=== PATIENT | male | born 1950 | race Caucasian/White ===

== ENCOUNTER 2019-09-28 14:23 | Observation (INO) | payer OTHER, BC ==
[2019-09-28] MEDS ORDERED: NA CHLORIDE 0.9% 1,000 ML ONE (15:15)
[2019-09-28 15:18] LABS: Absolute Lymphocytes (CBC) 1.5 K/uL (0.7-4.9); Basophils % 0.4 % (0-1.3); Hematocrit 41.4 % (39.6-49.0); Lymphocytes % 20.3 % (15.3-44.8); MPV 9.5 fL (7.6-11.3); RBC Red Blood Cell Count 4.79 M/uL (4.33-5.43)
--- NOTE | 2019-09-28 15:21 | EDPHYS ---
Physician Documentation [facility] Name: Santa Tejeda Age: 68 yrs Sex: Male : 1950 Arrival Date: 09/28/2019 Time: 14:25 Bed 30 Private MD: ED Physician Vladimir Ibarra HPI: 09/28 15:12 This 68 yrs old Male presents to ER via Ambulatory with complaints of Leg bob Swelling. 15:12 no trauma , no stasis, no hypercoagulable state. Onset: The symptoms/episode bob began/occurred 3 day(s) ago. Severity of symptoms: At their worst the symptoms were mild moderate in the emergency department the symptoms are unchanged. The patient has not experienced similar symptoms in the past. Historical: - Allergies: 14:42 No Known Allergies; iw - Home Meds: 14:42 lisinopril 10 mg Oral tab 1 tab once daily [Active]; metformin 500 mg Oral Tb24 2 times iw per day [Active]; - PMHx: 14:42 Hypertension; Diabetes - NIDDM; iw - PSHx: 14:42 shoulder; hip; iw - Immunization history:: Adult Immunizations not up to date. - Social history:: Smoking status: Patient/guardian denies using tobacco. - Ebola Screening: : Patient negative for fever greater than or equal to 101.5 degrees Fahrenheit, and additional compatible Ebola Virus Disease symptoms Patient denies exposure to infectious person Patient denies travel to an Ebola-affected area in the 21 days before illness onset No symptoms or risks identified at this time. - Family history:: not pertinent. ROS: 15:12 Constitutional: Negative for fever, chills, and weight loss, Eyes: Negative for injury, bob pain, redness, and discharge, ENT: Negative for injury, pain, and discharge, Neck: Negative for injury, pain, and swelling, Cardiovascular: Negative for chest pain, palpitations, and edema, Respiratory: Negative for shortness of breath, cough, wheezing, and pleuritic chest pain, Abdomen/GI: Negative for abdominal pain, nausea, vomiting, diarrhea, and constipation, Back: Negative for injury and pain, : Negative for injury, bleeding, discharge, and swelling, Skin: Negative for injury, rash, and discoloration, Neuro: Negative for headache, weakness, numbness, tingling, and seizure, Psych: Negative for depression, anxiety, suicide ideation, homicidal ideation, and hallucinations, Allergy/Immunology: Negative for hives, rash, and allergies, Endocrine: Negative for neck swelling, polydipsia, polyuria, polyphagia, and marked weight changes, Hematologic/Lymphatic: Negative for swollen nodes, abnormal bleeding, and unusual bruising. 15:12 MS/extremity: Positive for decreased range of motion, pain, swelling, tenderness, of the right leg. Exam: 15:12 Constitutional: This is a well developed, well nourished patient who is awake, alert, bob and in no acute distress. Head/Face: Normocephalic, atraumatic. Eyes: Pupils equal round and reactive to light, extra-ocular motions intact. Lids and lashes normal. Conjunctiva and sclera are non-icteric and not injected. Cornea within normal limits. Periorbital areas with no swelling, redness, or edema. ENT: Nares patent. No nasal discharge, no septal abnormalities noted. Tympanic membranes are normal and external auditory canals are clear. Oropharynx with no redness, swelling, or masses, exudates, or evidence of obstruction, uvula midline. Mucous membranes moist. Neck: Trachea midline, no thyromegaly or masses palpated, and no cervical lymphadenopathy. Supple, full range of motion without nuchal rigidity, or vertebral point tenderness. No Meningismus. Chest/axilla: Normal chest wall appearance and motion. Nontender with no deformity. No lesions are appreciated. Cardiovascular: Regular rate and rhythm with a normal S1 and S2. No gallops, murmurs, or rubs. Normal PMI, no JVD. No pulse deficits. Respiratory: Lungs have equal breath sounds bilaterally, clear to auscultation and percussion. No rales, rhonchi or wheezes noted. No increased work of breathing, no retractions or nasal flaring. Abdomen/GI: Soft, non-tender, with normal bowel sounds. No distension or tympany. No guarding or rebound. No evidence of tenderness throughout. Back: No spinal tenderness. No costovertebral tenderness. Full range of motion. Skin: Warm, dry with normal turgor. Normal color with no rashes, no lesions, and no evidence of cellulitis. Neuro: Awake and alert, GCS 15, oriented to person, place, time, and situation. Cranial nerves II-XII grossly intact. Motor strength 5/5 in all extremities. Sensory grossly intact. Cerebellar exam normal. Normal gait. Psych: Awake, alert, with orientation to person, place and time. Behavior, mood, and affect are within normal limits. 15:12 Musculoskeletal/extremity: ROM: full passive range of motion, limited active range of motion, Circulation is intact in all extremities. Sensation intact. Compartment Syndrome exam of affected extremity: is normal. DVT Exam: negative Homans' sign noted on exam, no appreciated bluish discoloration, no erythema, no increased warmth, pain, swelling, tenderness. Vital Signs: 14:43 BP 138 / 77; Pulse 82; Resp 16; Temp 98.2; Pulse Ox 97% on R/A; Weight 99.79 kg; Height iw 5 ft. 7 in. (170.18 cm); 16:30 BP 134 / 78; Pulse 72; Resp 16; Pulse Ox 99% on R/A; Pain 0/10; iw 17:07 BP 136 / 76; Pulse 67; Resp 16; Pulse Ox 99% ; rv 20:00 BP 128 / 68; Pulse 66; Resp 16; Pulse Ox 98% on R/A; rv 20:24 BP 131 / 71; Pulse 66; Resp 16; Pulse Ox 99% on R/A; rv 14:43 Body Mass Index 34.46 (99.79 kg, 170.18 cm) iw MDM: 14:48 Patient medically screened. [facility] 15:18 Data reviewed: vital signs, nurses notes, lab test result(s), EKG, radiologic studies, [facility] CT scan, doppler, plain films. 09/28 14:49 Order name: Basic Metabolic Panel [facility] 09/28 14:49 Order name: CBC with Diff [facility] 09/28 14:49 Order name: LFT's [facility] 09/28 14:49 Order name: Magnesium [facility] 09/28 14:49 Order name: NT PRO-BNP; Complete Time: 16:28 [facility] 09/28 14:49 Order name: PT-INR; Complete Time: 16:28 [facility] 09/28 14:49 Order name: Troponin (emerg Dept Use Only); Complete Time: 16:28 [facility] 09/28 14:49 Order name: XRAY Chest (1 view); Complete Time: 16:28 [facility] 09/28 14:49 Order name: US Extremity Venous W Compression Artur [facility] 09/28 14:49 Order name: Basic Metabolic Panel; Complete Time: 16:28 [facility] 09/28 14:49 Order name: CBC with Automated Diff; Complete Time: 16:28 [facility] 09/28 14:49 Order name: Liver (Hepatic) Function; Complete Time: 16:28 [facility] 09/28 14:49 Order name: Magnesium; Complete Time: 16:28 [facility] 09/28 15:17 Order name: CT Chest For PE Angio; Complete Time: 17:22 [facility] 09/28 14:49 Order name: EKG; Complete Time: 14:50 [facility] 09/28 14:49 Order name: Cardiac monitoring; Complete Time: 17:07 [facility] 09/28 14:49 Order name: EKG - Nurse/Tech; Complete Time: 15:24 [facility] 09/28 14:49 Order name: IV Saline Lock; Complete Time: 15:24 [facility] 09/28 14:49 Order name: Labs collected and sent; Complete Time: 15:25 [facility] 09/28 14:49 Order name: O2 Per Protocol; Complete Time: 15:25 [facility] 09/28 14:49 Order name: O2 Sat Monitoring; Complete Time: 15:25 [facility] 09/28 19:40 Order name: US EDMS Administered Medications: 15:24 Drug: NS 0.9% 1000 ml Route: IV; Rate: 125 ml/hr; Site: right antecubital; iw 17:04 Follow up: IV Status: Completed infusion rv 16:37 Drug: Lovenox 1 mg/kg Route: Sub-Q; Site: right lower abdomen; iw 20:26 Follow up: Response: No adverse reaction rv 17:03 Drug: Aspirin Chewable Tablet 324 mg Route: PO; rv 20:25 Follow up: Response: No adverse reaction rv 17:03 Drug: Pepcid 20 mg Route: IVP; Site: right antecubital; rv 20:25 Follow up: Response: No adverse reaction rv Disposition: 09/28/19 15:19 Hospitalization ordered by Ezequiel Rizzo for Inpatient Admission. Preliminary diagnosis are Acute embolism and thrombosis of other specified deep vein of right lower extremity, Type 2 diabetes mellitus, Pulmonary embolism - multiple, bilateral, Essential (primary) hypertension. - Bed requested for Telemetry/MedSurg (Inpatient). - Status is Inpatient Admission. rv - Condition is Fair. - Problem is new. - Symptoms have improved. UTI on Admission? No Signatures: Dispatcher [employer] EDMS Mena Piña Vladimir Robledo MD MD cha Williams, Irene, RN RN Vickey Burt RN RN rv Corrections: (The following items were deleted from the chart) 16:27 15:19 Hospitalization Ordered by Ezequiel Rizzo DO for Inpatient Admission. Preliminary bob diagnosis is Acute embolism and thrombosis of other specified deep vein of right lower extremity; Type 2 diabetes mellitus. Bed requested for Telemetry/MedSurg (Inpatient). Status is Inpatient Admission. Condition is Fair. Problem is new. Symptoms have improved. UTI on Admission? No. [facility] 16:27 16:27 09/28/2019 15:19 Hospitalization Ordered by Ezequiel So OLIVEIRA for Inpatient bob Admission. Preliminary diagnosis is Acute embolism and thrombosis of other specified deep vein of right lower extremity; Type 2 diabetes mellitus; Pulmonary embolism - multiple, bilateral. Bed requested for Telemetry/MedSurg (Inpatient). Status is Inpatient Admission. Condition is Fair. Problem is new. Symptoms have improved. UTI on Admission? No. bob 18:41 16:27 09/28/2019 15:19 Hospitalization Ordered by Ezequiel So OLIVEIRA for Inpatient bd Admission. Preliminary diagnosis is Acute embolism and thrombosis of other specified deep vein of right lower extremity; Type 2 diabetes mellitus; Pulmonary embolism - multiple, bilateral; Essential (primary) hypertension. Bed requested for Telemetry/MedSurg (Inpatient). Status is Inpatient Admission. Condition is Fair. Problem is new. Symptoms have improved. UTI on Admission? No. bob 20:26 18:41 09/28/2019 15:19 Hospitalization Ordered by EzequielVishal OLIVEIRA for Inpatient rv Admission. Preliminary diagnosis is Acute embolism and thrombosis of other specified deep vein of right lower extremity; Type 2 diabetes mellitus; Pulmonary embolism - multiple, bilateral; Essential (primary) hypertension. Bed requested for Telemetry/MedSurg (Inpatient). Status is Inpatient Admission. Condition is Fair. Problem is new. Symptoms have improved. UTI on Admission? No. bd
--- NOTE | 2019-09-28 15:21 | RAD REPORT ---
EXAM DESCRIPTION: RAD - Chest Single View - 09/28/2019 3:03 pm CLINICAL HISTORY: Cough, shortness of breath, leg swelling COMPARISON: None. TECHNIQUE: AP portable chest image was obtained 1500 hours . FINDINGS: No pulmonary edema or focal lung parenchymal process. Heart and vasculature are normal. No measurable pleural effusion and no pneumothorax. No acute bony abnormality seen. No acute aortic fin dings suspected. IMPRESSION: No acute cardiopulmonary process.
--- NOTE | 2019-09-28 15:21 | ER ---
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 Transition of care: patient was not received from another setting of care. Onset of symptoms was September 28, 2019. Risk Assessment: Do you want to hurt yourself or someone else? Patient reports no desire to harm self or others. Initial Sepsis Screen: Does the patient meet any 2 criteria? No. Patient's initial sepsis screen is negative. Does the patient have a suspected source of infection? No. Patient's initial sepsis screen is negative. Care prior to arrival: None. 14:39 Method Of Arrival: Ambulatory iw 14:39 Acuity: ASHLEY 3 iw Triage Assessment: 17:06 General: Appears in no apparent distress. comfortable, Behavior is calm, cooperative. rv Pain: Denies pain. Historical: - Allergies: 14:42 No Known Allergies; iw - Home Meds: 14:42 lisinopril 10 mg Oral tab 1 tab once daily [Active]; metformin 500 mg Oral Tb24 2 times iw per day [Active]; - PMHx: 14:42 Hypertension; Diabetes - NIDDM; iw - PSHx: 14:42 shoulder; hip; iw - Immunization history:: Adult Immunizations not up to date. - Social history:: Smoking status: Patient/guardian denies using tobacco. - Ebola Screening: : Patient negative for fever greater than or equal to 101.5 degrees Fahrenheit, and additional compatible Ebola Virus Disease symptoms Patient denies exposure to infectious person Patient denies travel to an Ebola-affected area in the 21 days before illness onset No symptoms or risks identified at this time. - Family history:: not pertinent. Screenin:39 Abuse screen: Denies threats or abuse. Denies injuries from another. Nutritional iw screening: No deficits noted. Tuberculosis screening: No symptoms or risk factors identified. Fall Risk IV access (20 points). Assessment: 16:39 Reassessment: Patient appears in no apparent distress at this time. Patient and/or iw family updated on plan of care and expected duration. Pain level reassessed. Patient is alert, oriented x 3, equal unlabored respirations, skin warm/dry/pink. pt updated on POC, US still pending, CT shows positive PE, admission pending. 17:10 Reassessment: Patient appears in no apparent distress at this time. Patient and/or rv family updated on plan of care and expected duration. Pain level reassessed. Patient is alert, oriented x 3, equal unlabored respirations, skin warm/dry/pink. ongoing ultrasound of the lower limb at bedside. Vital Signs: 14:43 BP 138 / 77; Pulse 82; Resp 16; Temp 98.2; Pulse Ox 97% on R/A; Weight 99.79 kg; Height iw 5 ft. 7 in. (170.18 cm); 16:30 BP 134 / 78; Pulse 72; Resp 16; Pulse Ox 99% on R/A; Pain 0/10; iw 17:07 BP 136 / 76; Pulse 67; Resp 16; Pulse Ox 99% ; rv 20:00 BP 128 / 68; Pulse 66; Resp 16; Pulse Ox 98% on R/A; rv 20:24 BP 131 / 71; Pulse 66; Resp 16; Pulse Ox 99% on R/A; rv 14:43 Body Mass Index 34.46 (99.79 kg, 170.18 cm) ED Course: 14:25 Patient arrived in ED. rg4 14:41 Triage completed. iw 14:43 Arm band placed on. iw 14:48 Vladimir Ibarra MD is Attending Physician. bob 14:49 Vickey Burt RN is Primary Nurse. rv 15:00 Inserted saline lock: 20 gauge in right antecubital area, using aseptic technique. rv Blood collected. 15:01 XRAY Chest (1 view) In Process Unspecified. EDMS 15:18 Ezequiel Rizzo DO is Hospitalizing Provider. bob 15:30 Patient has correct armband on for positive identification. Placed in gown. Bed in low rv position. Call light in reach. groundwater monitoring technician on. Pulse ox on. NIBP on. 16:10 CT Chest For PE Angio In Process Unspecified. EDMS 20:25 No provider procedures requiring assistance completed. Patient admitted, IV remains in rv place. Administered Medications: 15:24 Drug: NS 0.9% 1000 ml Route: IV; Rate: 125 ml/hr; Site: right antecubital; iw 17:04 Follow up: IV Status: Completed infusion rv 16:37 Drug: Lovenox 1 mg/kg Route: Sub-Q; Site: right lower abdomen; iw 20:26 Follow up: Response: No adverse reaction rv 17:03 Drug: Aspirin Chewable Tablet 324 mg Route: PO; rv 20:25 Follow up: Response: No adverse reaction rv 17:03 Drug: Pepcid 20 mg Route: IVP; Site: right antecubital; rv 20:25 Follow up: Response: No adverse reaction rv Outcome: 15:19 Decision to Hospitalize by Provider. bob 20:25 Admitted to Med/surg accompanied by tech, via stretcher, room 222, with chart, Report rv called to karyna perry 20:25 Condition: good 20:25 Instructed on the need for admit. 20:26 Patient left the ED. rv Signatures: Dispatcher [employer] EDMS Vladimir Ibarra MD MD cha Williams, Irene, RN RN Yu Pérez Vickey Vinson RN RN rv
[2019-09-28 15:41] LABS: ALT/SGPT 29 U/L (12-78); AST/SGOT 11 U/L (15-37); Albumin 3.7 g/dL (3.4-5.0); Alkaline Phosphatase 100 U/L (45-117); BUN Blood Urea Nitrogen 18 mg/dL (7-18); Bicarbonate 27 mmol/L (21-32); Bilirubin Direct < 0.1 mg/dL (0-0.2); Bilirubin Total 0.4 mg/dL (0.2-1.0); Glucose Level 263 mg/dL (74-106); Magnesium 2.2 mg/dL (1.8-2.4); NT PRO-BNP 23 pg/mL (<125); Potassium 3.9 mmol/L (3.5-5.1); Protein, Total 6.5 g/dL (6.4-8.2); Sodium Level 138 mmol/L (136-145); Troponin (Emerg Dept Use Only) < 0.02 ng/mL (0.0-0.045)
[2019-09-28] MEDS ORDERED: ENOXAPARIN 100 MG/ML SYR SQ ONE (15:43)
[2019-09-28 16:07] LABS: Protime INR 1.01
--- NOTE | 2019-09-28 16:28 | RAD REPORT ---
EXAM DESCRIPTION: CT - Chest For Pe Angio - 09/28/2019 4:10 pm CLINICAL HISTORY: Chest pain;Dyspnea COMPARISON: Chest Single View dated 09/28/2019 TECHNIQUE: Dynamically enhanced 3 mm thick images of the chest were obtained during administration o f approximately 150mL Isovue 370 IV contrast. Coronal and oblique MIP reconstruction images were gene rated and reviewed. Exam utilizes a protocol to evaluate the pulmonary arterial tree. All CT scans are performed using dose optimization technique as appropriate and may include automated exposure control or mA/KV adjustment according to patient size. FINDINGS: There questionable segmental branch pulmonary emboli in the right upper lobe. Patient has definitive lobar and segmental branch pulmonary emboli in the left lower lobe. Multiple segmental bra nch right lower lobe pulmonary emboli are present. No saddle embolus. The aorta as imaged shows no acute or suspicious finding. Cardiomegaly is present without pericardial effusion. No abnormal enlargement of the right atria or ventricle. No infiltrate or mass in the lung parenchyma. No pleural effusion or pleural thickening. No interstit ial edema evident. No mediastinal or hilar suspicious masses. No chest wall masses or abnormal axillary lymphadenopathy. IMPRESSION: Left lower lobar and segmental branch pulmonary emboli. Multiple segmental branch right lower lobe pulmonary emboli with probable segmental branch pulmonary emboli in the right upper lobe. No saddle embolus. No aorta abnormality or right heart abnormality evident. Lung barajas are clear.
[2019-09-28] MEDS ORDERED: ASPIRIN 81 MG CHEWABLE TABLET ONE (17:02)
[2019-09-28] MEDS ORDERED: FAMOTIDINE 20 MG/2 ML VIAL IV ONE (17:02)
--- NOTE | 2019-09-28 17:39 | P.HP ---
Certification for Inpatient Patient admitted to: Observation With expected LOS: <2 Midnights Patient will require the following post-hospital care: None Practitioner: I am a practitioner with admitting privileges, knowledge of patient current condition, hospital course, and medical plan of care. Services: Services provided to patient in accordance with Admission requirements found in Title 42 Section 412.3 of the Code of Federal Regulations Patient History Date of Service: 09/28/19 Primary Care Provider: Bri Reason for admission: Right lower extremity swelling History of Present Illness: 68-year-old male with history of pre diabetes and hypertension presented with right lower extremity swelling since yesterday. Patient start to notice increasing swelling to the right lower extremity. Some mild pressure noted. Minimal pain. He denies any fever, chills or shortness of breath. Patient is originally from [place]. He came to the area 2 weeks ago. He was planning to go back to [place] soon. Patient also has a history of right rotator cuff surgery June 08. 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 In the ER patient evaluated. Patient had right lower extremity swelling. CBC unremarkable. BMP shows blood sugar 263. Troponin unremarkable. CT scan revealed left lower lobe and segmental branch pulmonary emboli. Multiple segmental branch right lower lobe with probable segmental branch pulmonary emboli in the right upper lobe noted. No saddle embolus noted. Patient was started on anti coagulation therapy. Patient admitted for further evaluation and treatment. When I saw the patient ER, appeared stable. No significant distress noted. Home medications list reviewed: Yes - Past Medical/Surgical History Diabetic: Yes -: Diabetes type 2, [id number] -: Hypertension -: Right rotator cuff repair -: Left hip replacement Psychosocial/ Personal History: Patient is - Family History Family History: Reviewed- Non-Contributory - Social History Smoking Status: Never smoker Alcohol use: Yes CD- Drugs: No Caffeine use: Yes Place of Residence: Home Review of Systems General: As per HPI Eyes: Unremarkable ENT: Unremarkable Respiratory: Unremarkable Cardiovascular: Unremarkable Gastrointestinal: Unremarkable Genitourinary: Unremarkable Musculoskeletal: Pedal edema, As per HPI Integumentary: As per HPI Neurological: Unremarkable Lymphatics: Unremarkable Physical Examination - Physical Exam General: Alert, In no apparent distress, Oriented x3, Cooperative HEENT: Atraumatic, Normocephalic, Mucous membr. moist/pink Neck: Supple, No Thyromegaly Respiratory: Clear to auscultation bilaterally, Normal air movement Cardiovascular: Normal pulses, Regular rate/rhythm Gastrointestinal: Normal bowel sounds, Soft and benign, Non-distended, No tenderness, No masses, No rebound, No guarding Musculoskeletal: Other (Significant right lower extremity swelling noted. Right greater than left noted.) Neurological: Normal speech, Normal strength at 5/5 x4 extr, Normal tone, Normal affect - Studies Laboratory Data (last 24 hrs) 09/28/19 14:59: PT 11.9, INR 1.01 09/28/19 14:59: WBC 7.5, Hgb 13.9, Hct 41.4, Plt Count 171 09/28/19 14:59: Sodium 138, Potassium 3.9, BUN 18, Creatinine 0.71, Glucose 263 H, Magnesium 2.2, Total Bilirubin 0.4, AST 11 L, ALT 29, Alkaline Phosphatase 100 Assessment and Plan - Plan Impression: Right lower extremity swelling suspect DVT with noted bilateral pulmonary embolism History of pre diabetes suspect diabetes mellitus type 2 non-insulin dependent Hypertension Plan: Right lower extremity swelling suspect DVT with noted bilateral pulmonary embolism: Patient will be admitted for further evaluation and treatment. Will start Lovenox at 1 milligram/kilogram subcu twice daily. Will need to transition to oral medication likely within the next 24 hr. Will order echocardiogram to further evaluate. Await venous Doppler study. Pulmonology consulted to further address. Anticipate discharge in the next 24 hr with clinical improvement. History of pre diabetes suspect diabetes mellitus type 2 non-insulin dependent: Will check A1c. Will provide Accu-Cheks and sliding scale. Will continue with home medication of metformin. Hypertension: Continue medication of lisinopril. Will monitor adjust appropriately pre Discharge Plan: Home Plan to discharge in: 24 Hours - Advance Directives Does patient have a Living Will: No Does patient have a Durable POA for Healthcare: No - Code Status/Comfort Care Code Status Assessed: Yes (Patient is full code) Time Spent Managing Pts Care (In Minutes): 55
--- NOTE | 2019-09-28 19:38 | RAD REPORT ---
EXAM DESCRIPTION: US - Extrem Venous W Compress Artur - 09/28/2019 6:48 pm CLINICAL HISTORY: Bilateral leg pain and swelling COMPARISON: None. TECHNIQUE: Real-time sonographic evaluation of the bilateral lower extremity common femoral, superfi cial femoral, popliteal and posterior tibial veins was performed. FINDINGS: Acute thrombus is present in the right common femoral vein near the junction with the grea ter saphenous vein. More distally the superficial femoral and popliteal veins on the right are clear of thrombus. There is good compression. Posterior tibial veins at the ankle are clear. Left lower extremity shows good compression and augmentation from groin to ankle. No left leg DVT. No mass or abnormal fluid collection in either lower extremity. IMPRESSION: Acute right leg DVT near the common femoral vein greater saphenous vein junction. No DVT in the left lower extremity.
[2019-09-28] MEDS ORDERED: ACETAMINOPHEN 500 MG TAB PO PRN (20:14)
[2019-09-28] MEDS ORDERED: ONDANSETRON 4 MG/2 ML VIAL IV PRN (20:14)
[2019-09-28] MEDS: INSULIN -REGULAR HUMAN 50 UNIT/0.5 ML ML SQ SCH (21:00)
[2019-09-28 22:20] VITALS: BMI 34.4
[2019-09-28 23:16] LABS: Urine Appearance CLEAR; Urine Bilirubin NEGATIVE (NEG); Urine Blood NEGATIVE (NEG); Urine Color YELLOW; Urine Glucose 1+ (NEG); Urine Protein NEGATIVE (NEG); Urine Specific Gravity >=1.030 (1.005-1.030); Urine pH 5.5 (5.0-7.0)
[2019-09-28 23:26] LABS: Urine Microscopic Reflex NO UMIC
[2019-09-29] MEDS ORDERED: ENOXAPARIN 100 MG/ML SYR SQ SCH (06:00)
[2019-09-29] MEDS ORDERED: PNEUMOCOCCAL VACCINE 0.5 ML IMVAC ONE (06:00)
[2019-09-29 06:12] LABS: Absolute Lymphocytes (CBC) 1.6 K/uL (0.7-4.9); Basophils % 0.5 % (0-1.3); Hematocrit 38.3 % (39.6-49.0); Lymphocytes % 27.2 % (15.3-44.8); MPV 9.3 fL (7.6-11.3); RBC Red Blood Cell Count 4.45 M/uL (4.33-5.43)
[2019-09-29 06:20] LABS: BUN Blood Urea Nitrogen 15 mg/dL (7-18); Bicarbonate 30 mmol/L (21-32); Glucose Level 206 mg/dL (74-106); Magnesium 2.2 mg/dL (1.8-2.4); Potassium 4.1 mmol/L (3.5-5.1); Sodium Level 141 mmol/L (136-145)
[2019-09-29] MEDS: INSULIN -REGULAR HUMAN 50 UNIT/0.5 ML ML SQ SCH ×3 (07:30→16:20)
[2019-09-29] MEDS ORDERED: METFORMIN HCL 500 MG TAB PO SCH (08:00)
--- NOTE | 2019-09-29 08:07 | EKG ---
Test Date: 2019-09-28 Test Time: 15:18:27 [employer] Supervisor: CHRIS MEASUREMENT RESULTS: Intervals: Rate: 72 [place]: 152 QRSD: 90 QT: 384 QTc: 420 [place]: P: 49 [place]: 152 QRS: 9 T: 44 INTERPRETIVE STATEMENTS: Normal sinus rhythm Normal ECG No previous ECG available for comparison Electronically Signed On 09-29-19 08:06:59 ENGLISH LECTURER by Aaron Jaquez
[2019-09-29] MEDS ORDERED: lisinopriL 10 MG TAB PO SCH ×2 (09:00→21:00)
[2019-09-29] MEDS ORDERED: INFLUENZA VACCINE (for 3y+) 0.5 ML DOSE IMVAC ONE (09:00)
--- NOTE | 2019-09-29 09:14 | P.PN ---
Subjective Date of Service: 09/29/19 Primary Care Provider: Bri Chief Complaint: Right lower extremity swelling Subjective: Improving, Doing well Physical Examination - Vital Signs Temperature: 97.7 F Blood Pressure: 173/90 Pulse: 76 Respirations: 20 Pulse Ox (%): 94 - Physical Exam General: Alert, In no apparent distress, Oriented x3, Cooperative HEENT: Atraumatic Neck: Supple Respiratory: Clear to auscultation bilaterally, Normal air movement Cardiovascular: Normal pulses, Regular rate/rhythm Gastrointestinal: Normal bowel sounds, Soft and benign, Non-distended, No tenderness, No masses, No rebound, No guarding Musculoskeletal: No tenderness, No warmth Integumentary: Tenderness/swelling (Swelling to the right lower extremity improved since yesterday) Neurological: Normal speech, Normal strength at 5/5 x4 extr, Normal tone, Normal affect - Studies Laboratory Data (last 24 hrs) 09/28/19 14:59: PT 11.9, INR 1.01 09/28/19 14:59: WBC 7.5, Hgb 13.9, Hct 41.4, Plt Count 171 09/28/19 14:59: Sodium 138, Potassium 3.9, BUN 18, Creatinine 0.71, Glucose 263 H, Magnesium 2.2, Total Bilirubin 0.4, AST 11 L, ALT 29, Alkaline Phosphatase 100 Medications List Reviewed: Yes Assessment & Plan Discharge Plan: Home Plan to discharge in: 24 Hours Physician Review Additional Text: Impression: Right lower extremity swelling secondary to acute right leg DVT near the common femoral vein greater saphenous vein junction complicated with bilateral pulmonary embolism DVT with noted bilateral pulmonary embolism Diabetes mellitus type 2 non-insulin dependent with hyperglycemia Hypertension Plan: Right lower extremity swelling secondary to acute right leg DVT near the common femoral vein greater saphenous vein junction complicated with bilateral pulmonary embolism: Patient has done well Overnite. Patient was started on Lovenox at 1 milligram/kilogram subcu twice daily. Will transition from Lovenox to Eliquis 10 mg twice daily. Echocardiogram could not be done today. Will discuss with pulmonology about the possibility of discharge as early as today. Patient will require Eliquis 10 mg twice daily for 7 days then 5 mg twice daily for 3-6 months. Patient is originally from [place] and plans to go back soon. Patient will likely require follow up with pulmonology here then clear for travel back to [place] within the next week or 2. Will discuss further with pulmonology. Diabetes mellitus type 2 non-insulin dependent with hyperglycemia: A1c 9.6. Patient has diabetes mellitus type 2. Will need to hold metformin for at least 2 more days. Patient will likely require 2-3 agents for better diabetic control. Diabetic education provided. Hypertension: Blood pressure still slightly elevated. Will increase lisinopril to 10 mg 1 pill twice daily. Further adjustment can be done by his PCP. Time Spent Managing Pts Care (In Minutes): 55
[2019-09-29 10:36] VITALS: O2SAT 96
--- NOTE | 2019-09-29 11:38 | P.CNS ---
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 denies any shortness of breath or any pulmonary complaints no prior history of thromboembolism no other complaints Allergies No Known Allergies Allergy (Unverified 09/28/19 20:54) Home Medications: Apixaban [Eliquis] 10 mg PO SEECOM #82 tablet 09/29/19 Metformin HCl [Glucophage*] 500 mg PO BID 09/29/19 lisinopriL [Lisinopril] 10 mg PO DAILY 09/29/19 - Past Medical/Surgical History Diabetic: Yes -: Diabetes type 2, [id number] -: Hypertension -: Left rotator cuff repair -: Left hip replacement Psychosocial/ Personal History: Patient is - Family History Father Medical History: Cancer Notes: pancreatic Mother Medical History: Cancer Notes: lymphoma - Social History Alcohol use: Yes CD- Drugs: No Caffeine use: Yes Place of Residence: Home Review of Systems 10-point ROS is otherwise unremarkable Physical Examination Temp Pulse Resp BP Pulse Ox 97.7 F 76 20 173/90 H 94 09/29/19 09:14 09/29/19 09:14 09/29/19 09:14 09/29/19 09:14 09/29/19 09:14 General: Alert, In no apparent distress, Oriented x3 Respiratory: Clear to auscultation bilaterally Cardiovascular: No edema, Normal pulses, Regular rate/rhythm Gastrointestinal: Normal bowel sounds, Soft and benign Musculoskeletal: Swelling (He has swelling of the entire right leg) Integumentary: No rashes, No breakdown Laboratory Data (last 24 hrs) 09/28/19 14:59: PT 11.9, INR 1.01 09/28/19 14:59: WBC 7.5, Hgb 13.9, Hct 41.4, Plt Count 171 09/28/19 14:59: Sodium 138, Potassium 3.9, BUN 18, Creatinine 0.71, Glucose 263 H, Magnesium 2.2, Total Bilirubin 0.4, AST 11 L, ALT 29, Alkaline Phosphatase 100 - Problems (1) Deep vein thrombosis (DVT) with pulmonary embolism present on admission Current Visit: Yes Status: Acute Plan: Patient is 68 years of age admitted with acute DVT and pulmonary embolism he is hemodynamically stable last shoulder surgery done in May as associated with a sedentary lifestyle denies any pulmonary complaints recommend discharging him on either Xarelto or Eliquis I recommend min him anticoagulation for at least3-6 months. Blood pressure is mildly elevated saturation satisfactory patient lives in [place] he is to follow with his primary care doctor I have also advised him to use an above knee compression stocking otherwise is no restriction he is able to fly are dry back to [place]
--- NOTE | 2019-09-29 11:58 | P.DS ---
Admission Date: 09/28/19 Discharge Date: 09/29/19 Primary Care Provider: Bri Disposition: ROUTINE DISCHARGE Discharge Condition: GOOD Reason for Admission: DVT and pulmonary embolism Consultations: Pulmomary-Dr. Rios Procedures: Venous Doppler: FINDINGS: Acute thrombus is present in the right common femoral vein near the junction with the greater saphenous vein. More distally the superficial femoral and popliteal veins on the right are clear of thrombus. There is good compression. Posterior tibial veins at the ankle are clear. Left lower extremity shows good compression and augmentation from groin to ankle. No left leg DVT. No mass or abnormal fluid collection in either lower extremity. IMPRESSION: Acute right leg DVT near the common femoral vein greater saphenous vein junction. No DVT in the left lower extremity. CT scan: FINDINGS: There questionable segmental branch pulmonary emboli in the right upper lobe. Patient has definitive lobar and segmental branch pulmonary emboli in the left lower lobe. Multiple segmental branch right lower lobe pulmonary emboli are present. No saddle embolus. The aorta as imaged shows no acute or suspicious finding. Cardiomegaly is present without pericardial effusion. No abnormal enlargement of the right atria or ventricle. No infiltrate or mass in the lung parenchyma. No pleural effusion or pleural thickening. No interstitial edema evident. No mediastinal or hilar suspicious masses. No chest wall masses or abnormal axillary lymphadenopathy. IMPRESSION: Left lower lobar and segmental branch pulmonary emboli. Multiple segmental branch right lower lobe pulmonary emboli with probable segmental branch pulmonary emboli in the right upper lobe. No saddle embolus. No aorta abnormality or right heart abnormality evident. Lung barajas are clear. Medical Problem List: Right lower extremity swelling secondary to acute right leg DVT near the common femoral vein greater saphenous vein junction complicated with bilateral pulmonary embolism to the left lower lobe/segmental branch and segmental right upper/lower lobe Diabetes mellitus type 2 non-insulin dependent with hyperglycemia Hypertension Brief History of Present Illness: 68-year-old male with history of pre diabetes and hypertension presented with right lower extremity swelling since yesterday. Patient start to notice increasing swelling to the right lower extremity. Some mild pressure noted. Minimal pain. He denies any fever, chills or shortness of breath. Patient is originally from [place]. He came to the area 2 weeks ago. He was planning to go back to [place] soon. Patient also has a history of right rotator cuff surgery June 08. 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 In the ER patient evaluated. Patient had right lower extremity swelling. CBC unremarkable. BMP shows blood sugar 263. Troponin unremarkable. CT scan revealed left lower lobe and segmental branch pulmonary emboli. Multiple segmental branch right lower lobe with probable segmental branch pulmonary emboli in the right upper lobe noted. No saddle embolus noted. Patient was started on anti coagulation therapy. Patient admitted for further evaluation and treatment. When I saw the patient ER, appeared stable. No significant distress noted. Hospital Course: Patient presented with right lower extremity swelling. Patient found to have acute right leg DVT near the common femoral vein greater saphenous vein junction complicated with bilateral pulmonary embolism to the left lower lobe/ segmental branch and segmental right upper and lower lobe. Patient was admitted for treatment. Patient initiated on Lovenox. This was transition to oral anti coagulation therapy. At discharge swelling to the right lower extremity improved. Patient was seen by pulmonology. Pulmonology recommends anti coagulation therapy for 3-6 months. At discharge, Eliquis was not covered by insurance therefore patient will continue with Xarelto 15 mg twice daily with food for 21 days then Xarelto 20 mg daily for 3-6 months. Recommend follow up with pulmonology in 2-4 weeks to monitor his progress. Patient originally from [place]. Patient plans to go up to [place] soon. Patient will continue with medication and leg stockings. Patient may have to limit activity for a short period. Once in [place] patient should follow up with his PCP within 1 week to follow up this hospitalization. Will recommend that he follow up with pulmonology in [place] in 2-4 weeks. Patient plans to come back to the area frequently. Patient plans to establish care with local PCP and pulmonology. Information provided. Patient plans to establish care with Dr. Patel and may follow up with Dr. Rios in 4-6 weeks. Education on Xarelto , chronic anti coagulation therapy and pulmonary embolism provided. Will recommend outpatient echocardiogram and possible cardiac evaluation in the future. Patient has history of pre diabetes. Patient presented with hyperglycemia. Diabetes type 2 suspected. A1c 9.6. He reported his previous A1c less than 7. Patient has diabetes mellitus type 2 [id number]. Patient will likely require 2-3 agents for better diabetic control. Patient will continue with a 2000 ADA diet. Recommend to monitor his blood sugar at least twice daily and to keep a log. At discharge patient will restart metformin in 2 days at a higher dose. He will continue with metformin 1000 mg twice daily. Amaryl 1 mg daily has been added for better diabetic control. Further adjustment can be done by his PCP. Patient may end up Patient with hypertension. At discharge patient will continue with lisinopril 10 mg daily. Recommend to monitor blood pressure daily and to keep a log. Recommend to maintain blood pressure less than 140/90. Further adjustment by his PCP may be needed. Vital Signs/Physical Exam: Temp Pulse Resp BP Pulse Ox 97.7 F 76 20 173/90 H 94 09/29/19 09:14 09/29/19 09:14 09/29/19 09:14 09/29/19 09:14 09/29/19 09:14 General: Alert, In no apparent distress, Oriented x3, Cooperative HEENT: Atraumatic Neck: Supple Respiratory: Clear to auscultation bilaterally, Normal air movement Cardiovascular: Normal pulses, Regular rate/rhythm Gastrointestinal: Normal bowel sounds, Soft and benign, Non-distended, No tenderness, No masses, No rebound, No guarding Musculoskeletal: No erythema, No tenderness, No warmth Integumentary: No erythema, No warmth, No cyanosis, Tenderness/swelling ( improved swelling to the RLE) Neurological: Normal speech, Normal strength at 5/5 x4 extr, Normal tone Laboratory Data at Discharge: WBC 6.0 K/uL (4.3-10.9) D 09/29/19 05:43 Hgb 13.0 g/dL (13.6-17.9) L 09/29/19 05:43 Hct 38.3 % (39.6-49.0) L 09/29/19 05:43 Plt Count 160 K/uL (152-406) 09/29/19 05:43 PT 11.9 SECONDS (9.5-12.5) 09/28/19 14:59 INR 1.01 09/28/19 14:59 Sodium 141 mmol/L (136-145) 09/29/19 05:43 Potassium 4.1 mmol/L (3.5-5.1) 09/29/19 05:43 BUN 15 mg/dL (7-18) 09/29/19 05:43 Creatinine 0.69 mg/dL (0.55-1.3) 09/29/19 05:43 Glucose 206 mg/dL (74-106) H 09/29/19 05:43 Magnesium 2.2 mg/dL (1.8-2.4) 09/29/19 05:43 Total Bilirubin 0.4 mg/dL (0.2-1.0) 09/28/19 14:59 AST 11 U/L (15-37) L 09/28/19 14:59 ALT 29 U/L (12-78) 09/28/19 14:59 Alkaline Phosphatase 100 U/L (45-117) 09/28/19 14:59 Home Medications: Glimepiride 1 mg PO DAILY #30 tablet 09/29/19 Metformin HCl 1,000 mg PO BID #60 tablet 09/29/19 Rivaroxaban [Xarelto] 15 mg PO BID #42 tablet 09/29/19 Rivaroxaban [Xarelto] 20 mg PO DAILY #30 tab 09/29/19 lisinopriL [Lisinopril] 10 mg PO DAILY 09/29/19 New Medications: Glimepiride 1 mg PO DAILY #30 tablet Metformin HCl 1,000 mg PO BID #60 tablet Rivaroxaban [Xarelto] 20 mg PO DAILY #30 tab Rivaroxaban [Xarelto] 15 mg PO BID #42 tablet Patient Discharge Instructions: 1. Recommend follow up with PCP in 1 week to follow follow up this hospitalization. 2. Patient presented with right lower extremity swelling. Patient found to have acute right leg DVT near the common femoral vein greater saphenous vein junction complicated with bilateral pulmonary embolism to the left lower lobe/segmental branch and segmental right upper and lower lobe. Patient was admitted for treatment. Patient initiated on Lovenox. This was transition to oral anti coagulation therapy. At discharge swelling to the right lower extremity improved. Patient was seen by pulmonology. Pulmonology recommends anti coagulation therapy for 3-6 months. At discharge, Eliquis was not covered by insurance therefore patient will continue with Xarelto 15 mg twice daily with food for 21 days then Xarelto 20 mg daily for 3-6 months. Recommend follow up with pulmonology in 2-4 weeks to monitor his progress. Patient originally from [place]. Patient plans to go up to [place] soon. Patient will continue with medication and leg stockings. Patient may have to limit activity for a short period. Once in [place] patient should follow up with his PCP within 1 week to follow up this hospitalization. Will recommend that he follow up with pulmonology in [place] in 2-4 weeks. Patient plans to come back to the area frequently. Patient plans to establish care with local PCP and pulmonology. Information provided. Patient plans to establish care with Dr. Patel and may follow up with Dr. Rios in 4-6 weeks. Education on Xarelto, chronic anti coagulation therapy and pulmonary embolism provided. Will recommend outpatient echocardiogram and possible cardiac evaluation in the future. 3. Patient has history of pre diabetes. Patient presented with hyperglycemia. Diabetes type 2 suspected. A1c 9.6. He reported his previous A1c less than 7. Patient has diabetes mellitus type 2 [id number]. Patient will likely require 2-3 agents for better diabetic control. Patient will continue with a 2000 ADA diet. Recommend to monitor his blood sugar at least twice daily and to keep a log. At discharge patient will restart metformin in 2 days at a higher dose. He will continue with metformin 1000 mg twice daily. Amaryl 1 mg daily has been added for better diabetic control. Further adjustment can be done by his PCP. 4. Patient with hypertension. At discharge patient will continue with lisinopril 10 mg daily. Recommend to monitor blood pressure daily and to keep a log. Recommend to maintain blood pressure less than 140/90. Further adjustment by his PCP may be needed. Diet: ADA Activity: Ad stacey Time spent managing pt's care (in minutes): 55
[2019-09-29] MEDS ORDERED: RIVAROXABAN 15 MG TABLET PO SCH ×2 (13:00→17:00)
[2019-09-29 16:27] VITALS: BP 152/82; TEMP 98.7
[2019-09-29] MEDS ORDERED: APIXABAN 5 MG TABLET PO SCH (21:00)
== END 2019-09-29 17:15 | disposition home or self-care (01) ==
LOC: ER 14:23 → ERHOLD 17:28 → 2ND 20:01
PROVIDERS: ADMIT Family Medicine; ATTEND Family Medicine
DX: I82.411 Acute embolism and thrombosis of right femoral vein (principal); I26.99 Other pulmonary embolism without acute cor pulmonale; E11.65 Type 2 diabetes mellitus with hyperglycemia; I10 Essential (primary) hypertension; Z96.642 Presence of left artificial hip joint
CPT/HCPCS: 96361; 93005; 85025 ×2; 80048 ×2; 36415; 83735 ×2; 85610; 82947 ×4; 80076; 84443; 81003; 83036; 84484; 84439; 83880; 71275; 71045; 93970; 96372; 96374; 99285; Q9967; J1650 ×2; J7030; G0378 ×3